=== PATIENT | female | born 1965 | race Caucasian/White ===

== ENCOUNTER → 2019-05-09 | Outpatient (CLI) | payer BC | LOC: MC.RAD 08:28 | DX: Z12.31 Encounter for screening mammogram for malignant neoplasm of breast (principal) ==

== ENCOUNTER 2019-06-27 09:07 | Day surgery (SDC) | payer BC ==
[~2019-06-27] VITALS: Ht 160 cm; Wt 78.6 kg
[2019-06-27] MEDS ORDERED: PRINIVIL10 MG PO (09:20)
[2019-06-27] MEDS ORDERED: CANA300T PO (09:21)
[2019-06-27] MEDS ORDERED: VICTOZA6 MG/ML SQ (09:21)
[2019-06-27] MEDS ORDERED: JANUVIA 100MG100 MG PO (09:22)
[2019-06-27] MEDS ORDERED: LIPITOR 40MG TA40 MG PO (09:22)
[2019-06-27 09:44] VITALS: BP 106/75; PULSE 76; TEMP 97.7
[2019-06-27 10:40] VITALS: BP 106/87; PULSE 86; TEMP 97.4
--- NOTE | 2019-06-27 10:40 | NUR ---
Patient brought back to [facility], alert and oriented. Ambulated to chair without difficulty. States she would like muffin and sprite. Vital signs stable. Sister at bedside. Will continue to monitor.
[2019-06-27 10:55] VITALS: BP 102/71; PULSE 77
--- NOTE | 2019-06-27 11:06 | NUR ---
Tolerating food and drink without difficulty. Vital signs stable. Will continue to monitor.
[2019-06-27 11:10] VITALS: BP 97/61; PULSE 83
--- NOTE | 2019-06-27 11:10 | NUR ---
Patient states she is feeling well and ready to go home. Vital signs stable. Will continue to monitor.
[2019-06-27 11:13] VITALS: BP 104/71; PULSE 88
--- NOTE | 2019-06-27 11:20 | NUR ---
Discharge instructions reviewed with patient and sister. All questions answered. IV removed without difficulty. Patient to get dressed at this time.
--- NOTE | 2019-06-27 11:30 | NUR ---
Patient brought down to lobby via wheel chair. To be driven home by sister Octavia.
== END 2019-06-27 11:30 | disposition home or self-care (01) ==
LOC: SDCO 09:07
DX: Z12.11 Encounter for screening for malignant neoplasm of colon (principal); Z90.710 Acquired absence of both cervix and uterus; E11.9 Type 2 diabetes mellitus without complications; Z79.899 Other long term (current) drug therapy
CPT/HCPCS: J2250; J2405; J3010; J7030

== ENCOUNTER → 2020-06-23 | Outpatient (CLI) | payer BC ==
[~2020-06-23] MED LIST: CANA300T PO; JANUVIA 100MG100 MG PO; LIPITOR 40MG TA40 MG PO; PRINIVIL10 MG PO; VICTOZA6 MG/ML SQ
== END ==
LOC: MC.RAD 12:52
DX: Z12.31 Encounter for screening mammogram for malignant neoplasm of breast (principal)

== ENCOUNTER → 2021-07-27 | Outpatient (CLI) | payer BC | LOC: MC.RAD 09:28 | DX: Z12.31 Encounter for screening mammogram for malignant neoplasm of breast (principal); N64.89 Other specified disorders of breast ==

== ENCOUNTER → 2021-07-29 | Outpatient (CLI) | payer BC | LOC: MC.RAD 07:57 | DX: N64.89 Other specified disorders of breast (principal) ==

== ENCOUNTER → 2022-08-04 | Outpatient (CLI) | payer BC | LOC: MC.RAD 08:06 | DX: Z12.31 Encounter for screening mammogram for malignant neoplasm of breast (principal); N64.89 Other specified disorders of breast ==

== ENCOUNTER → 2022-08-11 | Outpatient (CLI) | payer BC | LOC: MC.RAD 10:54 | DX: N63.11 Unspecified lump in the right breast, upper outer quadrant (principal) ==

== ENCOUNTER → 2023-02-19 | Outpatient (CLI) | payer BC | LOC: MC.RAD 07:49 | DX: N63.11 Unspecified lump in the right breast, upper outer quadrant (principal) ==

== ENCOUNTER → 2023-09-10 | Outpatient (CLI) | payer BC | LOC: CANSCHCLI → MC.RAD 06:59 → COL.RAD 06:59 → MC.RAD 07:00 → COL.RAD 07:00 | DX: Z12.31 Encounter for screening mammogram for malignant neoplasm of breast (principal) ==